=== PATIENT | female | born 1985 | race Caucasian/White ===

== ENCOUNTER 2018-03-12 14:20 | Emergency (ER) | payer MEDICAID ==
[~2018-03-12] VITALS: Ht 172.7 cm; Wt 73.0 kg
[2018-03-12 14:29] VITALS: BP 128/57
== END 2018-03-12 16:30 | disposition left against medical advice (07) ==
LOC: ER 14:20
DX: Z53.21 Procedure and treatment not carried out due to patient leaving prior to being seen by health care provider (principal)